=== PATIENT | female | born 1980 | race African-American/Black ===

== ENCOUNTER 2017-04-25 23:42 | Emergency (ER) | payer OTHER ==
[~2017-04-25] VITALS: Ht 182.9 cm; Wt 99.8 kg
[~2017-04-25 23:42] MED LIST: NIFE30TA2 PO
[2017-04-26 00:29] LABS: BILIRUBIN,URINE MODERATE (NEG); GLUCOSE,URINE NEGATIVE (NEG); NITRITE,URINE NEGATIVE (NEG); PROTEIN,URINE 100 mg/dL (NEG-TRACE); UROBILINOGEN,URINE 0.2 mg/dL (0.2 mg/dL)
[2017-04-26 00:30] LABS: BASO % 0 % (0-3); EOS % 0 % (0-3); HEMATOCRIT 38.6 % (36.0-47.0); HEMOGLOBIN 13.1 g/dL (12.0-15.5); LYMPH # 0.7 x10^3/uL (1.0-4.8); LYMPH % 11 % (24-48); MEAN CORPUSCULAR HEMOGLOBIN 30 pg (25-35); MEAN CORPUSCULAR HGB CONC 34 g/dL (31-37); MEAN CORPUSCULAR VOLUME 89 fL (79-100); MONO % 5 % (0-9); NEUT % 84 % (31-73); PLATELET COUNT 107 x10^3/uL (140-400); RED BLOOD COUNT 4.34 x10^6/uL (3.50-5.40); RED CELL DISTRIBUTION WIDTH 13.9 % (11.5-14.5); WHITE BLOOD COUNT 6.3 x10^3/uL (4.0-11.0)
[2017-04-26] MEDS ORDERED: ONDANSETRON PF 4 MG/2 ML VIAL. IV ONE (00:30)
[2017-04-26] MEDS ORDERED: IV NORMAL SALINE 1000ML BAG 1,000 ML IV ONE (00:30)
[2017-04-26 00:34] LABS: BACTERIA,URINE FEW /HPF (0-FEW); RBC,URINE TNTC /HPF (0-2); SQUAMOUS EPITHELIAL CELL,UR MOD /LPF; WBC,URINE >40 /HPF (0-4)
[2017-04-26 00:43] LABS: CALCIUM 8.3 mg/dL (8.5-10.1); CREATININE 1.1 mg/dL (0.6-1.0); GFR 68.8; POTASSIUM 3.5 mmol/L (3.5-5.1)
[2017-04-26 00:48] LABS: ALBUMIN 3.8 g/dL (3.4-5.0); TOTAL BILIRUBIN 0.7 mg/dL (0.2-1.0); TOTAL PROTEIN 7.7 g/dL (6.4-8.2)
[2017-04-26 01:10] VITALS: BP 178/110
[2017-04-26] MEDS ORDERED: CEPH-264 PO (01:14)
[2017-04-26] MEDS ORDERED: ONDA4TAB10 SL (01:14)
--- NOTE | 2017-04-26 01:14 | PHYS DOC ---
Past Medical History Past Medical History: Hypertension, Other Additional Past Medical Histor: gestational htn Past Surgical History: No Surgical History Alcohol Use: None Drug Use: Marijuana Adult General Chief Complaint Chief Complaint: NAUSEA/VOMITING/DIARRHA HPI HPI Patient is a 36 year old female who presents here today complaining of nausea vomiting and diarrhea that started this morning. Patient with history of hypertension. Denies any diabetes liver longer kidney problems. Patient has had no abdominal surgeries in the past. Patient reports she smokes does not drink or do any drugs. Patient reports currently she is on her menses. She is not allergic to any medications. Patient has any fevers shakes chills dysuria frequency urgency or vaginal discharge. Patient reports she is not able keep any solids down today however she was able keep liquids down this evening. Patient has any melena or bright red blood per rectum. Patient has any hematochezia. Patient has any coffee-ground emesis. Patient denies any abdominal pain. Patient reports only has abdominal discomfort when she vomits. Constitutional: Denies fever or chills [] Eyes: Denies change in visual acuity, redness, or eye pain [] All other review systems are negative except as documented in the history of present illness portion. Constitutional: Well developed, well nourished, no acute distress, non-toxic appearance. [] HENT: Normocephalic, atraumatic, bilateral external ears normal, oropharynx moist, no oral exudates, nose normal. [] Eyes: EOMI, conjunctiva normal, no discharge. [] Neck: Normal range of motion, supple, no stridor. [] Cardiovascular:Heart rate regular rhythm Lungs & Thorax: Bilateral breath sounds clear to auscultation [] Abdomen: Bowel sounds normal, soft, no tenderness, no masses, no pulsatile masses. [] Skin: Warm, dry, no erythema Back: No tenderness, no CVA tenderness. [] Extremities: No tenderness, no cyanosis, no clubbing, ROM intact, no edema. [] Neurologic: Alert and oriented X 3, normal motor function, normal sensory function, no focal deficits noted. [] Psychologic: Affect normal, judgement normal, mood normal. [] Assessment and plan this is a 36-year-old female who presents here today secondary to nausea vomiting diarrhea and dehydration. Patient is clinically hemodynamically stable. Patient was given IV hydration the ER as well as antiemetics. Patient's labs were all within normal limits except for a UA that was consistent with urinary tract infection. Patient was started on Rocephin IV and will be discharged home on Keflex and Zofran. Current Medications Current Medications Current Medications Medications (Trade) Dose Ordered Sig/Kaylin Start Time Stop Time Status Last Admin Dose Admin Ceftriaxone Sodium 50 ml @ 100 mls/hr 1X ONCE 04/26/17 01:00 04/26/17 01:29 Ondansetron HCl (Zofran) 4 mg 1X ONCE 04/26/17 00:30 04/26/17 00:31 DC 04/26/17 00:10 4 MG Sodium Chloride 1,000 ml @ 1,000 mls/hr 1X ONCE 04/26/17 00:30 04/26/17 01:29 04/26/17 00:10 1,000 MLS/HR Allergies Allergies Allergies Coded Allergies Type Severity Reaction Last Updated Verified No Known Drug Allergies 01/11/14 No Current Patient Data Vital Signs Vital Signs Date Time Temp Pulse Resp B/P (MAP) Pulse Ox O2 Delivery O2 Flow Rate FiO2 04/26/17 00:11 98.3 103 20 177/110 (132) 98 Room Air 98.3 Lab Values Laboratory Tests Test 04/25/17 00:07 04/25/17 23:15 04/25/17 23:48 White Blood Count 6.3 x10^3/uL (4.0-11.0) Red Blood Count 4.34 x10^6/uL (3.50-5.40) Hemoglobin 13.1 g/dL (12.0-15.5) Hematocrit 38.6 % (36.0-47.0) Mean Corpuscular Volume 89 fL (79-100) Mean Corpuscular Hemoglobin 30 pg (25-35) Mean Corpuscular Hemoglobin Concent 34 g/dL (31-37) Red Cell Distribution Width 13.9 % (11.5-14.5) Platelet Count 107 x10^3/uL (140-400) L Neutrophils (%) (Auto) 84 % (31-73) H Lymphocytes (%) (Auto) 11 % (24-48) L Monocytes (%) (Auto) 5 % (0-9) Eosinophils (%) (Auto) 0 % (0-3) Basophils (%) (Auto) 0 % (0-3) Neutrophils # (Auto) 5.3 x10^3uL (1.8-7.7) Lymphocytes # (Auto) 0.7 x10^3/uL (1.0-4.8) L Monocytes # (Auto) 0.3 x10^3/uL (0.0-1.1) Eosinophils # (Auto) 0.0 x10^3/uL (0.0-0.7) Basophils # (Auto) 0.0 x10^3/uL (0.0-0.2) Sodium Level 139 mmol/L (136-145) Potassium Level 3.5 mmol/L (3.5-5.1) Chloride Level 103 mmol/L (98-107) Carbon Dioxide Level 25 mmol/L (21-32) Anion Gap 11 (6-14) Blood Urea Nitrogen 13 mg/dL (7-20) Creatinine 1.1 mg/dL (0.6-1.0) H Estimated GFR (Cockcroft-Gault) 68.8 BUN/Creatinine Ratio 12 (6-20) Glucose Level 100 mg/dL (70-99) H Calcium Level 8.3 mg/dL (8.5-10.1) L Total Bilirubin 0.7 mg/dL (0.2-1.0) Aspartate Amino Transferase (AST) 15 U/L (15-37) Alanine Aminotransferase (ALT) 19 U/L (14-59) Alkaline Phosphatase 72 U/L (46-116) Total Protein 7.7 g/dL (6.4-8.2) Albumin 3.8 g/dL (3.4-5.0) Albumin/Globulin Ratio 1.0 (1.0-1.7) Lipase 123 U/L (73-393) POC Urine HCG, Qualitative Hcg negative (Negative) Urine Collection Type Unknown Urine Color Red Urine Clarity Turbid Urine pH 5.0 Urine Specific [place] 1.020 Urine Protein 100 mg/dL (NEG-TRACE) Urine Glucose (UA) Negative mg/dL (NEG) Urine Ketones (Stick) Trace mg/dL (NEG) Urine Blood Large (NEG) Urine Nitrite Negative (NEG) Urine Bilirubin Moderate (NEG) Urine Urobilinogen Dipstick 0.2 mg/dL (0.2 mg/dL) Urine Leukocyte Esterase Large (NEG) Urine RBC Tntc /HPF (0-2) Urine WBC >40 /HPF (0-4) Urine Squamous Epithelial Cells Mod /LPF Urine Bacteria Few /HPF (0-FEW) Urine Mucus Mod /LPF Laboratory Tests 04/25/17 00:07 Laboratory Tests 04/25/17 00:07 EKG EKG [] Radiology/Procedures Radiology/Procedures [] Course & Med Decision Making Course & Med Decision Making Pertinent Labs and Imaging studies reviewed. (See chart for details) [] Dragon Disclaimer Dragon Disclaimer This electronic medical record was generated, in whole or in part, using a voice recognition dictation system. Departure Departure Impression: Primary Impression: Urinary tract infection Additional Impressions: Nausea vomiting and diarrhea Dehydration Disposition: HOME, SELF-CARE Condition: IMPROVED Referrals: NO PCP (PCP) Patient Instructions: Dehydration, Adult, Nausea and Vomiting, Urinary Tract Infection Scripts Ondansetron (ZOFRAN ODT) 4 Mg Tab.rapdis 1 TAB SL Q6HRS Y for NAUSEA, #12 TAB Prov: EMELI NATHAN MD 04/26/17 Cephalexin (KEFLEX) 500 Mg Capsule 500 MG PO QID for 10 Days, CAP Prov: EMELI NATHAN MD 04/26/17 Problem Qualifiers EMELI NATHAN MD Apr 26, 2017 01:14
== END 2017-04-26 01:38 | disposition home or self-care (01) ==
LOC: ER 23:42
DX: N39.0 Urinary tract infection, site not specified (principal); R19.7 Diarrhea, unspecified; E86.0 Dehydration; I10 Essential (primary) hypertension
CPT/HCPCS: 36415; 80053; 81001; 81025; 83690; 85027; 87086; 96361; 96365; 96375; 99284; J0690; J2405; J7030

== ENCOUNTER 2017-11-24 18:14 | Emergency (ER) | payer SELFPAY ==
[2017-11-24] MEDS: LABETALOL 20 MG/4 ML DISP.SYRIN. IVP ×4 (20:08→20:42)
[2017-11-24] MEDS ORDERED: cloNIDine HCL 0.1 MG TABLET PO ×2 (21:00)
[2017-11-24] MEDS: cloNIDine HCL 0.1 MG TABLET PO ×2 (21:04)
[2017-11-25 05:21] LABS: AGAP ISTAT 16 mmol/L (6-14); BUN ISTAT 18 mg/dL (8-26); CHLORIDE ISTAT 104 mmol/L (98-110); CREATININE ISTAT 1.1 mg/dL (0.5-1.4); GLUCOSE ISTAT 106 mg/dL (70-99); HEMATOCRIT ISTAT 35 % (36-40); HEMOGLOBIN ISTAT 11.9 g/dL (12-15); ION CA ISTAT 1.13 mmol/L (1.13-1.32); SODIUM ISTAT 142 mmol/L (135-145); TOT CO2 ISTAT 26 mmol/L (23-32)
== END 2017-11-24 22:08 | disposition home or self-care (01) ==
LOC: ER 18:14
DX: I16.0 Hypertensive urgency (principal); I10 Essential (primary) hypertension; R04.0 Epistaxis; F12.10 Cannabis abuse, uncomplicated
CPT/HCPCS: 80047; 85014; 85018; 93005; 96374; 96376; 99284-25; J3490

== ENCOUNTER 2021-04-07 11:48 | Emergency (ER) | payer OTHER ==
[~2021-04-07] VITALS: Ht 182.9 cm; Wt 104.0 kg
[~2021-04-07 11:48] MED LIST changes: +CEPH-264 PO; +METO1TAB6 PO; +ONDA4TAB10 SL
[2021-04-07] MEDS ORDERED: DEXAMETHASONE SOD PHOS 20 MG/5 ML VIAL. IV ONE (12:45)
[2021-04-07] MEDS ORDERED: IV NORMAL SALINE 1000ML BAG 1,000 ML IV ONE (12:45)
[2021-04-07] MEDS ORDERED: cloNIDine HCL 0.1 MG TABLET PO ONE (12:45)
[2021-04-07 13:07] LABS: BILIRUBIN,URINE NEGATIVE (NEG); CLARITY,URINE CLEAR; COLOR,URINE YELLOW; NITRITE,URINE NEGATIVE (NEG); PROTEIN,URINE NEGATIVE (NEG-TRACE); UROBILINOGEN,URINE 0.2 mg/dL (0.2 mg/dL)
[2021-04-07 13:12] LABS: BARBITURATES NEG (NEG); BENZODIAZEPINES NEG (NEG); CANNABINOIDS NEG (NEG); COCAINE NEG (NEG); METHADONE NEG (NEG); OPIATES NEG (NEG); PHENCYCLIDINE NEG (NEG)
[2021-04-07 13:16] LABS: AMPHETAMINE/METHAMPHETAMINE NEG (NEG)
[2021-04-07 13:17] LABS: BASO % 1 % (0-3); EOS # 0.4 x10^3/uL (0.0-0.7); EOS % 9 % (0-3); HEMATOCRIT 34.4 % (36.0-47.0); HEMOGLOBIN 11.9 g/dL (12.0-15.5); LYMPH # 1.3 x10^3/uL (1.0-4.8); LYMPH % 31 % (24-48); MEAN CORPUSCULAR HEMOGLOBIN 30 pg (25-35); MEAN CORPUSCULAR HGB CONC 34 g/dL (31-37); MEAN CORPUSCULAR VOLUME 87 fL (79-100); MONO # 0.4 x10^3/uL (0.0-1.1); MONO % 10 % (0-9); NEUT # 2.1 x10^3/uL (1.8-7.7); NEUT % 49 % (31-73); PLATELET COUNT 137 x10^3/uL (140-400); RED BLOOD COUNT 3.95 x10^6/uL (3.50-5.40); RED CELL DISTRIBUTION WIDTH 16.3 % (11.5-14.5); WHITE BLOOD COUNT 4.3 x10^3/uL (4.0-11.0)
[2021-04-07 13:17] LABS: RBC,URINE 0 /HPF (0-2)
[2021-04-07 13:18] LABS: BACTERIA,URINE FEW /HPF (0-FEW)
[2021-04-07 13:26] LABS: CALCIUM 8.9 mg/dL (8.5-10.1); CREATININE 1.3 mg/dL (0.6-1.0); GFR 55.5
--- NOTE | 2021-04-07 13:27 | RAD ---
CT HEAD/BRAIN WO History: Reason: HTN, left side tingling / Spl. Instructions: / History: Comparison: None. Technique: Noncontrast CT imaging was performed of the head. Exposure: One or more of the following individualized dose reduction techniques were utilized for thi s examination: 1. Automated exposure control 2. Adjustment of the mA and/or kV according to patient size 3. Use of iterative reconstruction technique. Findings: No intracranial hemorrhage. No mass effect. No hydrocephalus. Extra-axial spaces are unremarkable. Imaged orbits are unremarkable. Imaged paranasal sinuses and mastoid air cells are clear. No acute ca lvarial fracture. Impression: 1. No acute intracranial abnormality. Electronically signed by: Willie Diaz DO (04/07/2021 1:25 PM) [id number]
[2021-04-07 13:32] LABS: ALBUMIN 3.7 g/dL (3.4-5.0); TOTAL BILIRUBIN 0.3 mg/dL (0.2-1.0); TOTAL PROTEIN 7.4 g/dL (6.4-8.2)
--- NOTE | 2021-04-07 13:34 | RAD ---
EXAM: XR CHEST 1V 04/07/2021 1:20 PM CLINICAL INDICATION: Tingling, left-sided pain COMPARISON: Chest radiograph 01/11/2014 TECHNIQUE: AP upright view of the chest FINDINGS: The heart and mediastinum are normal. Lungs are well-expanded and clear. No consolidatio n, pleural effusion, or pneumothorax. Pulmonary vascularity is normal. The thoracic skeleton is int act. IMPRESSION: Normal chest radiograph. Electronically signed by: Martine Orozco MD (04/07/2021 1:31 PM) [id number]
--- NOTE | 2021-04-07 13:41 | RAD ---
US DPLX VENOUS EXTREMITY LOWER LT History: Reason: tingling / Spl. Instructions: / History: Pain Comparison: None. Discussion: Multiple longitudinal and transverse high resolution real-time images of the venous system of left lo wer extremity were obtained with color and Doppler sampling. The common femoral, superficial femoral, popliteal and proximal calf veins are all patent and demonstrate normal flow and compressibility. No rmal respiratory phasicity and augmentation is present. Impression: 1. No evidence of deep vein thrombosis. Electronically signed by: Willie Diaz DO (04/07/2021 1:39 PM) [id number]
[2021-04-07] MEDS ORDERED: CEPH500T PO (14:30)
--- NOTE | 2021-04-07 14:30 | PHYS DOC ---
Past Medical History Past Medical History: Hypertension, Other Additional Past Medical Histor: gestational htn (ROBERTO CARLOS ALFARO Zeb TOP PRECIPITATOR OPERATOR HELPER) Past Surgical History: No Surgical History (ROBERTO CARLOS ALFARO Zeb TOP PRECIPITATOR OPERATOR HELPER) Smoking Status: Current Every Day Smoker Alcohol Use: None Drug Use: None, Marijuana (ROBERTO CARLOS ALFARO Zeb TOP PRECIPITATOR OPERATOR HELPER) General Adult EDM: Chief Complaint: NEURO SYMPTOMS/DEFICITS HPI: HPI: Patient is a 40 year old female with history of hypertension who presents to the ED today complaining of tingling from the elbow to the fingers as well as from the knee to the foot on the left side, symptoms began 2 days ago. Patient denies anything specifically exacerbating or relieving her symptoms. She is also complaining of her generalized mild headache intermittently for 2 days. Denies any nausea, vomiting, chest pain or shortness of breath. She states she is concerned she is having a stroke. Denies anything specifically exacerbating or relieving her headache (ROBERTO CARLOS ALFARO Zeb TOP PRECIPITATOR OPERATOR HELPER) Review of Systems: Review of Systems: Constitutional: Denies fever or chills. [] Eyes: Denies change in visual acuity. [] HENT: Denies nasal congestion or sore throat. [] Respiratory: Denies cough or shortness of breath. [] Cardiovascular: Denies chest pain or edema. [] GI: denies abdominal pain, nausea, vomiting, bloody stools or diarrhea. [] : Denies dysuria. [] Musculoskeletal: Denies back pain or joint pain. [] Integument: Denies rash. [] Neurologic: Reports headache, tingling from the elbow to the fingers on the left side, tingling from the knee to the toes on the left side, denies focal weakness Psychiatric: Denies depression or anxiety. [] (MONICAMary CarmenROBERTO CARLOS Carrington TOP PRECIPITATOR OPERATOR HELPER) Heart Score: C/O Chest Pain: N/A Risk Factors: Risk Factors: DM, Current or recent (<one month) smoker, HTN, HLP, family histo ry of CAD, obesity. Risk Scores: Score 0 - 3: 2.5% MACE over next 6 weeks - Discharge Home Score 4 - 6: 20.3% MACE over next 6 weeks - Admit for Clinical Observation Score 7 - 10: 72.7% MACE over next 6 weeks - Early Invasive Strategies (ROBERTO CARLOS ALFARO TOP PRECIPITATOR OPERATOR HELPER) Current Medications: Current Medications Medications (Trade) Dose Ordered Sig/Kaylin Start Time Stop Time Status Last Admin Dose Admin Clonidine HCl (Catapres) 0.1 mg 1X ONCE 04/07/21 12:45 04/07/21 12:46 DC 04/07/21 13:43 0.1 MG Dexamethasone Sodium Phosphate (Decadron) 10 mg 1X ONCE 04/07/21 12:45 04/07/21 12:46 DC 04/07/21 13:43 10 MG Sodium Chloride 1,000 ml @ 1,000 mls/hr 1X ONCE 04/07/21 12:45 04/07/21 13:44 DC 04/07/21 12:45 1,000 MLS/HR (ROBERTO CARLOS ALFARO Zeb TOP PRECIPITATOR OPERATOR HELPER) Allergies: Allergies: Allergies Coded Allergies Type Severity Reaction Last Updated Verified No Known Drug Allergies 01/11/14 No (ROBERTO CARLOS ALFARO Zeb TOP PRECIPITATOR OPERATOR HELPER) Physical Exam: PE: Constitutional: Well developed, well nourished, no acute distress, non-toxic appearance. [] HENT: Normocephalic, atraumatic, bilateral external ears normal, oropharynx moist, no oral exudates, nose normal. [] Eyes: PERRLA, EOMI, conjunctiva normal, no discharge. [] Neck: Normal range of motion, no tenderness, supple, no stridor. [] Cardiovascular:Heart rate regular rhythm, no murmur [] Lungs & Thorax: Bilateral breath sounds clear to auscultation [] Abdomen: Bowel sounds normal, soft, no tenderness, no masses, no pulsatile masses. [] Skin: Warm, dry, no erythema, no rash. [] Back: No tenderness, no CVA tenderness. [] Extremities: No tenderness, no cyanosis, no clubbing, ROM intact, no edema. [] Neurologic: Alert and oriented X 3, normal motor function, normal sensory function, no focal deficits noted. Cranial nerves II through XII intact Psychologic: Affect normal, judgement normal, mood normal. [] (ROBERTO CARLOS ALFARO TOP PRECIPITATOR OPERATOR HELPER) Current Patient Data: Labs: Laboratory Tests Test 04/07/21 12:30 04/07/21 12:33 04/07/21 13:04 04/07/21 13:05 Urine Collection Type Unknown Urine Color Yellow Urine Clarity Clear Urine pH 6.0 (<5.0-8.0) Urine Specific [place] 1.015 (1.000-1.030) Urine Protein Negative mg/dL (NEG-TRACE) Urine Glucose (UA) Negative mg/dL (NEG) Urine Ketones (Stick) Negative mg/dL (NEG) Urine Blood Negative (NEG) Urine Nitrite Negative (NEG) Urine Bilirubin Negative (NEG) Urine Urobilinogen Dipstick 0.2 mg/dL (0.2 mg/dL) Urine Leukocyte Esterase Moderate (NEG) Urine RBC 0 /HPF (0-2) Urine WBC 1-4 /HPF (0-4) Urine Squamous Epithelial Cells Many /LPF Urine Bacteria Few /HPF (0-FEW) Urine Opiates Screen Neg (NEG) Urine Methadone Screen Neg (NEG) Urine Barbiturates Neg (NEG) Urine Phencyclidine Screen Neg (NEG) Urine Amphetamine/Methamphetamine Neg (NEG) Urine Benzodiazepines Screen Neg (NEG) Urine Cocaine Screen Neg (NEG) Urine Cannabinoids Screen Neg (NEG) Urine Ethyl Alcohol Neg (NEG) POC Urine HCG, Qualitative Hcg negative (Negative) Glucose (Fingerstick) 96 mg/dL (70-99) White Blood Count 4.3 x10^3/uL (4.0-11.0) Red Blood Count 3.95 x10^6/uL (3.50-5.40) Hemoglobin 11.9 g/dL (12.0-15.5) L Hematocrit 34.4 % (36.0-47.0) L Mean Corpuscular Volume 87 fL (79-100) Mean Corpuscular Hemoglobin 30 pg (25-35) Mean Corpuscular Hemoglobin Concent 34 g/dL (31-37) Red Cell Distribution Width 16.3 % (11.5-14.5) H Platelet Count 137 x10^3/uL (140-400) L Neutrophils (%) (Auto) 49 % (31-73) Lymphocytes (%) (Auto) 31 % (24-48) Monocytes (%) (Auto) 10 % (0-9) H Eosinophils (%) (Auto) 9 % (0-3) H Basophils (%) (Auto) 1 % (0-3) Neutrophils # (Auto) 2.1 x10^3/uL (1.8-7.7) Lymphocytes # (Auto) 1.3 x10^3/uL (1.0-4.8) Monocytes # (Auto) 0.4 x10^3/uL (0.0-1.1) Eosinophils # (Auto) 0.4 x10^3/uL (0.0-0.7) Basophils # (Auto) 0.0 x10^3/uL (0.0-0.2) Sodium Level 138 mmol/L (136-145) Potassium Level 4.0 mmol/L (3.5-5.1) Chloride Level 103 mmol/L (98-107) Carbon Dioxide Level 28 mmol/L (21-32) Anion Gap 7 (6-14) Blood Urea Nitrogen 20 mg/dL (7-20) Creatinine 1.3 mg/dL (0.6-1.0) H Estimated GFR (Cockcroft-Gault) 55.5 BUN/Creatinine Ratio 15 (6-20) Glucose Level 90 mg/dL (70-99) Calcium Level 8.9 mg/dL (8.5-10.1) Magnesium Level 2.0 mg/dL (1.8-2.4) Total Bilirubin 0.3 mg/dL (0.2-1.0) Aspartate Amino Transferase (AST) 16 U/L (15-37) Alanine Aminotransferase (ALT) 18 U/L (14-59) Alkaline Phosphatase 72 U/L (46-116) Troponin I Quantitative < 0.017 ng/mL (0.000-0.055) UR-Uny-Y-Type Natriuretic Peptide 119 pg/mL (0-124) Total Protein 7.4 g/dL (6.4-8.2) Albumin 3.7 g/dL (3.4-5.0) Albumin/Globulin Ratio 1.0 (1.0-1.7) Thyroid Stimulating Hormone (TSH) 0.397 uIU/mL (0.358-3.74) Laboratory Tests 04/07/21 13:05 Laboratory Tests 04/07/21 13:05 Vital Signs: Vital Signs Date Time Temp Pulse Resp B/P (MAP) Pulse Ox O2 Delivery O2 Flow Rate FiO2 04/07/21 13:43 76 152/107 04/07/21 12:45 98.4 16 100 Room Air 98.4 (ROBERTO CARLOS ALFARO APRN) EKG: EKG: [] (MUTUNGA,ROBERTO CARLOS M TOP PRECIPITATOR OPERATOR HELPER) Radiology/Procedures: Radiology/Procedures: []PROCEDURE: VENOUS LOWER EXTREMITY LEFT US DPLX VENOUS EXTREMITY LOWER LT History: Reason: tingling / Spl. Instructions: / History: Pain Comparison: None. Discussion: Multiple longitudinal and transverse high resolution real-time images of the venous system of left lower extremity were obtained with color and Doppler sampling. The common femoral, superficial femoral, popliteal and proximal calf veins are all patent and demonstrate normal flow and compressibility. Normal respiratory phasicity and augmentation is present. Impression: 1. No evidence of deep vein thrombosis. Electronically signed by: Willie Diaz DO (04/07/2021 1:39 PM) [id number] DICTATED and SIGNED BY: WILLIE DIAZ DO DATE: 04/07/21 [id number] PROCEDURE: CT HEAD WO CONTRAST CT HEAD/BRAIN WO History: Reason: HTN, left side tingling / Spl. Instructions: / History: Comparison: None. Technique: Noncontrast CT imaging was performed of the head. Exposure: One or more of the following individualized dose reduction techniques were utilized for this examination: 1. Automated exposure control 2. Adjustment of the mA and/or kV according to patient size 3. Use of iterative reconstruction technique. Findings: No intracranial hemorrhage. No mass effect. No hydrocephalus. Extra-axial spaces are unremarkable. Imaged orbits are unremarkable. Imaged paranasal sinuses and mastoid air cells are clear. No acute calvarial fracture. Impression: 1. No acute intracranial abnormality. Electronically signed by: Willie Diaz DO (04/07/2021 1:25 PM) [id number] DICTATED and SIGNED BY: WILLIE DIAZ DO DATE: 04/07/21 [id number] PROCEDURE: PORTABLE CHEST 1V EXAM: XR CHEST 1V 04/07/2021 1:20 PM CLINICAL INDICATION: Tingling, left-sided pain COMPARISON: Chest radiograph 01/11/2014 TECHNIQUE: AP upright view of the chest FINDINGS: The heart and mediastinum are normal. Lungs are well-expanded and clear. No consolidation, pleural effusion, or pneumothorax. Pulmonary vascularity is normal. The thoracic skeleton is intact. IMPRESSION: Normal chest radiograph. Electronically signed by: Nubia Orozco MD (04/07/2021 1:31 PM) [id number] DICTATED and SIGNED BY: NUBIA OROZCO MD DATE: 04/07/21 [id number] (ROBERTO CARLOS ALFARO APRN) Course & Med Decision Making: Course & Med Decision Making Pertinent Labs and Imaging studies reviewed. (See chart for details) This is a 40-year-old female patient presented to the ED today complaining of tingling from the Left elbow to the left fingers as well as left knee to the left toes, symptoms for 3 days. Patient is worried about stroke. CT of the head is negative, CBC CMP with no acute findings, UA noted for UTI. Venous Doppler of the left lower extremity is negative. Blood pressures in the 150s over low 100s. 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 Encouraged this patient to get an official PCP so that she can be put on appropriate medicine. She does not know what medicine she is on right now she thinks is HCTZ. Discharged with cephalexin for UTI. (ROBERTO CARLOS ALFARO APRN) Course & Med Decision Making I oversaw on the above date of service of this patient. This patient was evaluated, examined, treated, and dispositioned from the emergency department by the mid-level practitioner. Although I was working at the time and available for consultation, no assistance was requested and I did not see or immediately direct the care of this patient. I reviewed note and agree to findings, plan of care, and disposition as stated. Electronically signed, Rene Alvarez DO (RENE ALVAREZ DO) Nanette Disclaimer: Nanette Disclaimer: This electronic medical record was generated, in whole or in part, using a voice recognition dictation system. (ROBERTO CARLOS ALFARO APRN) Departure Departure Impression: Primary Impression: Tingling of upper extremity Additional Impressions: Numbness and tingling of lower extremity UTI (urinary tract infection) Qualified Codes: N39.0 - Urinary tract infection, site not specified Disposition: HOME / SELF CARE / HOMELESS Condition: STABLE Referrals: NO PCP (PCP) follow up with a primary care doctor Patient Instructions: Paresthesia, [id number], Urinary Tract Infection Additional Instructions: You were evaluated in the emergency room. You did not have a stroke today. Blood pressure is running high. Please consider establishing care with a primary care doctor and they can manage her blood pressure. You have a urinary tract infection. Please complete the prescribed antibiotics. Scripts Cephalexin (CEPHALEXIN) 500 Mg Tablet 1 TAB PO BID, #14 TAB Prov: ROBERTO CARLOS ALFARO APRN 04/07/21 ROBERTO CARLOS ALFARO APRN Apr 07, 2021 14:30 RENE ALVAREZ DO Apr 07, 2021 15:45
[2021-04-07 14:47] VITALS: BP 168/100
== END 2021-04-07 14:50 | disposition home or self-care (01) ==
LOC: ER 11:48
DX: N39.0 Urinary tract infection, site not specified (principal); R51.9 Headache, unspecified; R20.0 Anesthesia of skin
CPT/HCPCS: 36415; 70450; 71045; 80053; 80307; 81001; 81025; 82962; 83735; 83880; 84443; 84484; 85025; 87086; 93971; 96361; 96374; 99285; J1100; J7030